=== PATIENT | male | born 1945 | race Caucasian/White ===

== ENCOUNTER 2016-11-02 12:01 | Emergency (ER) | payer OTHER, MEDICARE ==
[2016-11-02 12:07] VITALS: RESP 18
--- NOTE | 2016-11-02 12:23 | CPEKG ---
Heart Rate: 85 RR Interval: 706 P-R Interval: 164 QRSD Interval: 72 QT Interval: 348 QTC Interval: 414 P Energy: 77 QRS Energy: 23 T Wave Energy: 23 EKG Severity - ABNORMAL ECG - EKG Impression: SINUS RHYTHM EKG Impression: ATRIAL PREMATURE COMPLEX EKG Impression: CONSIDER INFERIOR INFARCT EKG Impression: CONSIDER ANTEROSEPTAL INFARCT Electronically Signed By: Suzan Kahn 02-Nov-2016 14:41:12
[2016-11-02] MEDS ORDERED: IPRATROPIUM/ALBUTEROL 3 ML DEYVIAL IH ONE (12:24)
[2016-11-02 12:35] LABS: % IMMATURE GRANULYOCYTES 0.5 % (0.0-1.1); ABSOLUTE IMMATURE GRANULOCYTES 0.05 10^3/uL (0.00-0.10); ADD DIFF? NO; ADD MORPH? NO; ADD SCAN? NO; ATYPICAL LYMPHOCYTE FLAG 0 (0-99); FRAGMENT RBC FLAG 0 (0-99); HEMATOCRIT 49.8 % (40.0-51.0); HEMOGLOBIN 17.3 g/dL (13.7-17.5); LEFT SHIFT FLG 0 (0-99); LIPEMIA HEMOLYSIS FLAG 90 (0-99); MEAN CELL HEMOGLOBIN CONCENTR. 34.7 g/dL (32.4-36.7); MEAN CELL VOLUME 92.2 fL (81.5-99.8); MEAN PLATELET VOLUME 11.8 fL (8.7-11.7); PLATELET CLUMPS FLAG 10 (0-99); PLATELET COUNT 236 10^3/uL (150-400)
[2016-11-02 12:49] LABS: ANION GAP 14 mEq/L (8-16); CALCIUM 10.1 mg/dL (8.5-10.4); CARBON DIOXIDE 24 mEq/l (22-31); CHLORIDE 104 mEq/L (97-110); CREATININE 1.1 mg/dL (0.7-1.3); GLOMERULAR FILTRATION RATE > 60; GLUCOSE 100 mg/dL (70-100); POTASSIUM 4.4 mEq/L (3.5-5.2); SODIUM 142 mEq/L (134-144)
[2016-11-02 12:59] LABS: TROPONIN I < 0.012 ng/mL (0.000-0.034)
--- NOTE | 2016-11-02 13:46 | EDPHY ---
H & P Stated Complaint: sob/wheezing/cough - Personal History Current Tetanus/Diphtheria Vaccine: Yes - Medical/Surgical History Hx Asthma: No Hx Chronic Respiratory Disease: No Hx Diabetes: No Hx Cardiac Disease: No Hx Renal Disease: No Hx Cirrhosis: No Hx Alcoholism: No Hx HIV/AIDS: No Hx Splenectomy or Spleen Trauma: No Other PMH: prostatectomy/colon resection/umbilical hernia - Social History Smoking Status: Never smoked Time Seen by Provider: 11/02/16 12:16 HPI/ROS: Chief complaint: Shortness of breath History of present illness: This is a 71-year-old male who presents to the emergency department for evaluation of shortness of breath. Patient reports the onset of symptoms approximately 3 days ago while hiking in [facility] [place]. He states symptoms have been intermittent. They are most pronounced when he exerts himself. Further, he reports his allergies are increasing and he feels somewhat wheezy, he has a history of allergies and this is similar in presentation to past allergy issues. He denies other potential precipitating factors. He denies alleviating factors. He denies other associated signs or symptoms including no fevers, no cold symptoms, no chest pain, no palpitations, no dizziness or lightheadedness, no swelling in the extremities. He is visiting from [place]. He is leaving [place] tomorrow to go to [place] for a couple of weeks. Review of systems: A 10 point review of systems was obtained and other than described above was negative (Eduar Burt) - Physical Exam Exam: General Appearance: Alert, nontoxic. Eyes: Pupils equal and round no pallor or injection. ENT, Mouth: Mucous membranes moist. Respiratory: Patient talking in full sentences. No use of accessary muscles. Mildly diminished lung sounds globally. No rales, rhonchi or wheezing appreciated. Cardiovascular: Regular rate and rhythm. No edema of the lower extremities. Gastrointestinal: Abdomen is soft and non tender, no masses, bowel sounds normal. Neurological: Alert and oriented x4. Strength and sensation intact and symmetrical. Skin: Warm and dry, no rashes. Musculoskeletal: Neck is supple non tender. Extremities are symmetrical, full range of motion. Psychiatric: Patient is oriented X 3, there is no agitation. (Eduar Burt) Constitutional: Initial Vital Signs Temperature (C) 36.5 C 11/02/16 12:03 Heart Rate 89 11/02/16 12:03 Respiratory Rate 18 08/23/17 12:03 Blood Pressure 162/96 H 11/02/16 12:03 O2 Sat (%) 91 L 11/02/16 12:03 O2 Delivery Mode Room Air Allergies/Adverse Reactions: No Known Allergies Allergy (Unverified 11/02/16 12:03) Home Medications: Medication Instructions Recorded Claritin 11/02/16 Lipitor 11/02/16 Medical Decision Making - Diagnostics Imaging: I viewed and interpreted images myself - Diagnostics Imaging Results: Imaging Impressions Chest X-Ray 11/02/16 12:24 Impression: Mild peribronchial thickening suggesting airways disease/bronchitis. ED Course/Re-evaluation: The patient was evaluated and managed by the physician's property management assistant. My cosignature indicates that I reviewed the chart and I agree with the findings and plan of care as documented. I am the secondary supervising physician. ( Suzan Kahn) Patient is discussed with my secondary supervising physician Dr. Suzan Kahn. Patient presents to the emergency department for dyspnea. On presentation he is nontoxic. Afebrile and vital signs are stable. On my evaluation he is asymptomatic. Blood studies, EKG and chest x-ray unremarkable. My suspicion for serious pathology given unremarkable workup after 3 days is low. He is given a DuoNeb and reports some improvement in symptoms. I believe he is appropriate for discharge. He is discharged with an inhaler. He is asked to continue using an antihistamine. Home care is discussed. Strict return precautions are given. Patient voiced understanding and agreement with plan. (Eduar Burt) Differential Diagnosis: Included but not limited to reactive airway disease, pulmonary infections such as bronchitis and pneumonia, pneumothorax, cardiac dysrhythmia, ACS, heart failure, pulmonary embolism (Eduar Burt) - Data Points Laboratory Results: Laboratory Results 11/02/16 12:30 11/02/16 12:30 11/02/16 11/02/16 11/02/16 12:30 12:30 12:30 WBC 10.84 10^3/uL H 10^3/uL (3.80-9.50) RBC 5.40 10^6/uL 10^6/uL (4.40-6.38) Hgb 17.3 g/dL g/dL (13.7-17.5) Hct 49.8 % % (40.0-51.0) MCV 92.2 fL fL (81.5-99.8) MCH 32.0 pg pg (27.9-34.1) MCHC 34.7 g/dL g/dL (32.4-36.7) RDW 13.0 % % (11.5-15.2) Plt Count 236 10^3/uL 10^3/uL (150-400) MPV 11.8 fL H fL (8.7-11.7) Neut % (Auto) 52.7 % % (39.3-74.2) Lymph % (Auto) 29.1 % % (15.0-45.0) [place] % (Auto) 8.9 % % (4.5-13.0) Eos % (Auto) 8.1 % H % (0.6-7.6) Baso % (Auto) 0.7 % % (0.3-1.7) Nucleat RBC Rel Count 0.0 % % (0.0-0.2) Absolute Neuts (auto) 5.71 10^3/uL 10^3/uL (1.70-6.50) Absolute Lymphs (auto) 3.15 10^3/uL H 10^3/uL (1.00-3.00) Absolute Monos (auto) 0.97 10^3/uL H 10^3/uL (0.30-0.80) Absolute Eos (auto) 0.88 10^3/uL H 10^3/uL (0.03-0.40) Absolute Basos (auto) 0.08 10^3/uL 10^3/uL (0.02-0.10) Absolute Nucleated RBC 0.00 10^3/uL 10^3/uL (0-0.01) Immature Gran % 0.5 % % (0.0-1.1) Immature Gran # 0.05 10^3/uL 10^3/uL (0.00-0.10) D-Dimer 0.28 ug/mLFEU ug/mLFEU (0.00-0.50) Sodium 142 mEq/L mEq/L (134-144) Potassium 4.4 mEq/L mEq/L (3.5-5.2) Chloride 104 mEq/L mEq/L (97-110) Carbon Dioxide 24 mEq/l mEq/l (22-31) Anion Gap 14 mEq/L mEq/L (8-16) BUN 15 mg/dL mg/dL (7-23) Creatinine 1.1 mg/dL mg/dL (0.7-1.3) Estimated GFR > 60 Glucose 100 mg/dL mg/dL (70-100) Calcium 10.1 mg/dL mg/dL (8.5-10.4) Troponin I < 0.012 ng/mL ng/mL (0.000-0.034) NT-Pro-B Natriuret Pep 32 pg/mL pg/mL (0-125) Medications Given: Discontinued Medications Albuterol Sulfate (Proventil Inh Prepack) 1 mdi TAKEHOME EDNOW ONE Stop: 11/02/16 13:51 Last Admin: 11/02/16 14:01 Dose: 1 mdi Albuterol/Ipratropium (Duoneb) 3 ml IH EDNOW ONE Stop: 11/02/16 12:25 Last Admin: 11/02/16 12:31 Dose: 3 ml Departure - Departure Disposition: Home, Routine, Self-Care Clinical Impression: Dyspnea Qualifiers: Dyspnea type: unspecified Qualified Code(s): R06.00 - Dyspnea, unspecified Condition: Good Instructions: Albuterol (By breathing), Dyspnea (ED) Additional Instructions: Follow-up with a primary care doctor this week for continued evaluation and care Use the inhaler, 1-2 puffs every 4-6 hours as needed for trouble breathing If symptoms worsen or new symptoms develop return to the emergency room for recheck Referrals: VICTORINO TREJO [Other] - As per Instructions
[2016-11-02] MEDS ORDERED: ALBUTEROL INH PREPACK MDI TAKEHOME ONE (13:50)
[2016-11-02 14:05] VITALS: BP 171/78; PULSE 84; TEMP 97.5; O2SAT 92
== END 2016-11-02 14:05 | disposition home or self-care (01) ==
DX: R06.00 Dyspnea, unspecified (principal)